=== PATIENT | female | born 1940 | race Caucasian/White ===

== ENCOUNTER → 2017-12-15 | Outpatient (CLI) | payer MEDICARE ==
[~2017-12-15] MED LIST: AMLO5TAB2 PO; ASPI-1197 PO; BUTA-256 PO; LEVO75TA6 PO; LORA0.5T2 PO; LOVA40TA2 PO; METO100T7 PO
== END | disposition home or self-care (01) ==
LOC: SHCH 09:27
PROVIDERS: ATTEND Internal Medicine Cardiovascular Disease
DX: I51.7 Cardiomegaly (principal)
CPT/HCPCS: 93306

== ENCOUNTER → 2018-02-15 | Outpatient (CLI) | payer MEDICARE | END | disposition home or self-care (01) | LOC: RAH 10:28 | PROVIDERS: ATTEND Internal Medicine | DX: Z12.31 Encounter for screening mammogram for malignant neoplasm of breast (principal) | CPT/HCPCS: 77067 ==

== ENCOUNTER → 2018-07-05 | Outpatient (CLI) | payer MEDICARE ==
[~2018-07-05] MED LIST changes: -AMLO5TAB2 PO; +AMLO5TAB7 PO
== END | disposition home or self-care (01) ==
LOC: SHCH 11:16
PROVIDERS: ATTEND Internal Medicine Cardiovascular Disease
DX: I05.0 Rheumatic mitral stenosis (principal); I10 Essential (primary) hypertension
CPT/HCPCS: 93306

== ENCOUNTER → 2019-02-02 | Outpatient (CLI) | payer MEDICARE ==
[~2019-02-02] MED LIST changes: -AMLO5TAB7 PO; +AMLO5TAB9 PO
== END | disposition home or self-care (01) ==
LOC: RAH 13:49
PROVIDERS: ATTEND Internal Medicine Cardiovascular Disease
DX: J84.10 Pulmonary fibrosis, unspecified (principal); I25.10 Atherosclerotic heart disease of native coronary artery without angina pectoris; M47.815 Spondylosis without myelopathy or radiculopathy, thoracolumbar region
CPT/HCPCS: 71250

== ENCOUNTER → 2019-02-13 | Outpatient (CLI) | payer MEDICARE | END | disposition home or self-care (01) | LOC: SHCH 15:42 | PROVIDERS: ATTEND Internal Medicine Cardiovascular Disease | DX: I08.3 Combined rheumatic disorders of mitral, aortic and tricuspid valves (principal); I11.9 Hypertensive heart disease without heart failure | CPT/HCPCS: 93306 ==

== ENCOUNTER → 2019-03-01 | Outpatient (CLI) | payer MEDICARE | END | disposition home or self-care (01) | LOC: RAH 08:22 | PROVIDERS: ATTEND Internal Medicine | DX: K76.89 Other specified diseases of liver (principal) | CPT/HCPCS: 36415; 76705; 82565; 84520 ==

== ENCOUNTER → 2019-03-07 | Outpatient (CLI) | payer MEDICARE ==
[~2019-03-07] MED LIST changes: +IOHEXOL 350 MG/ML 100ML INFUS..BTL IV ONE
== END | disposition home or self-care (01) ==
LOC: OIH 08:47
PROVIDERS: ATTEND Internal Medicine
DX: R16.0 Hepatomegaly, not elsewhere classified (principal); K76.9 Liver disease, unspecified; I70.0 Atherosclerosis of aorta
CPT/HCPCS: 74170; Q9967

== ENCOUNTER 2019-04-05 15:45 | Emergency (ER) | payer MEDICARE ==
[~2019-04-05 15:45] MED LIST changes: -IOHEXOL 350 MG/ML 100ML INFUS..BTL IV ONE
[2019-04-05 16:23] LABS: BASOPHILS % (AUTO) 0.4 % (0.0-5.0); EOSINOPHILS % (AUTO) 0.9 % (0.0-8.0); HEMATOCRIT 43.4 % (36-48); LYMPHOCYTES % (AUTO) 22.5 % (21.0-51.0); MEAN CORPUSCULAR HEMOGLOBIN 29.4 pg (27.0-33.0); MEAN CORPUSCULAR HGB CONC 33.7 g/dL (32.0-36.0); MEAN CORPUSCULAR VOLUME 87.3 fL (79-99); MONOCYTES % (AUTO) 8.5 % (3.0-13.0); NEUTROPHILS % (AUTO) 67.7 % (40.0-77.0); NUCLEATED RED BLOOD CELLS 0.1 % (0.0-0.19); PLATELET COUNT (AUTO) 244 K/uL (130-400); RED BLOOD CELL COUNT(AUTO) 4.97 MIL/uL (4.00-5.50); RED CELL DISTRIBUTION WIDTH 14.8 % (11.0-15.5)
[2019-04-05 16:38] LABS: INR 1.01 (0.85-1.15); PARTIAL THROMBOPLASTIN TIME 26.8 SEC (26.3-35.5); PROTHROMBIN TIME 10.6 SEC (9.6-11.6)
[2019-04-05 16:40] LABS: POTASSIUM 3.4 mmol/L (3.5-5.1)
[2019-04-05 16:47] LABS: ALBUMIN 4.2 g/dL (3.5-5.0); BILIRUBIN,TOTAL 2.6 mg/dL (0.2-1.0)
[2019-04-05 16:52] LABS: B-TYPE NATRIURETIC PEPTIDE 374 pg/mL (0-100)
== END 2019-04-05 19:33 | disposition home or self-care (01) ==
LOC: EDH 15:45
DX: I10 Essential (primary) hypertension (principal); I70.1 Atherosclerosis of renal artery; F41.9 Anxiety disorder, unspecified; Z87.891 Personal history of nicotine dependence; Z88.1 Allergy status to other antibiotic agents
CPT/HCPCS: 36415; 70450; 71045; 76770; 80053; 82550; 83880; 84484; 85025; 85610; 85730; 93005; 93975

== ENCOUNTER → 2019-10-12 | Outpatient (CLI) | payer MEDICARE | END | disposition home or self-care (01) | LOC: RAH 09:28 | PROVIDERS: ATTEND Internal Medicine | DX: K76.89 Other specified diseases of liver (principal); N28.1 Cyst of kidney, acquired; K76.9 Liver disease, unspecified | CPT/HCPCS: 76705 ==

== ENCOUNTER → 2019-11-13 | Outpatient (CLI) | payer MEDICARE ==
[2019-11-13 15:19] LABS: CREATININE 1.1 mg/dL (0.5-1.5)
== END | disposition home or self-care (01) ==
LOC: RAH 14:02
PROVIDERS: ATTEND Internal Medicine
DX: K76.9 Liver disease, unspecified (principal)
CPT/HCPCS: 36415; 82565; 84520

== ENCOUNTER → 2019-11-16 | Outpatient (CLI) | payer MEDICARE ==
[~2019-11-16] MED LIST changes: +GADODIAMIDE 10 MMOL/20 ML VIAL IV ONE
== END | disposition home or self-care (01) ==
LOC: RAH 07:46
PROVIDERS: ATTEND Internal Medicine
DX: K76.0 Fatty (change of) liver, not elsewhere classified (principal); N28.1 Cyst of kidney, acquired
CPT/HCPCS: 74183; A9579

== ENCOUNTER 2020-05-27 05:36 | Day surgery (SDC) | payer MEDICARE ==
[2020-05-23 09:37] LABS: BASOPHILS % (AUTO) 0.3 % (0.0-5.0); EOSINOPHILS % (AUTO) 1.6 % (0.0-8.0); HEMATOCRIT 47.8 % (36-48); MEAN CORPUSCULAR HEMOGLOBIN 28.9 pg (27.0-33.0); MEAN CORPUSCULAR HGB CONC 31.6 g/dL (32.0-36.0); MEAN CORPUSCULAR VOLUME 91.6 fL (79-99); MONOCYTES % (AUTO) 7.2 % (3.0-13.0); NEUTROPHILS % (AUTO) 68.6 % (40.0-77.0); PLATELET COUNT (AUTO) 255 K/uL (130-400); RED BLOOD CELL COUNT(AUTO) 5.22 MIL/uL (4.00-5.50); RED CELL DISTRIBUTION WIDTH 13.9 % (11.0-15.5); WHITE BLOOD COUNT (AUTO) 10.3 K/uL (4.8-10.8)
[2020-05-23 09:43] LABS: APPEARANCE,URINE Turbid (CLEAR); BILIRUBIN,URINE Negative (NEGATIVE); COLOR,URINE Yellow (YELLOW); GLUCOSE, URINE (UA) Negative (NEGATIVE); KETONES,URINE Negative (NEGATIVE); LEUKOCYTE ESTERASE ,URINE Moderate (NEGATIVE); NITRATE,URINE Negative (NEGATIVE); OCCULT BLOOD,URINE Negative (NEGATIVE); PROTEIN,URINE Trace mg/dL (NEGATIVE)
[2020-05-23 09:51] LABS: INR 0.97 (0.85-1.15); PARTIAL THROMBOPLASTIN TIME 27.5 SEC (26.3-35.5); PROTHROMBIN TIME 10.5 SEC (9.6-11.6)
[2020-05-23 09:53] LABS: AMORPHOUS SEDIMENT,UR Moderate /LPF (None Seen); BACTERIA,URINE Rare /HPF (None Seen); MUCUS,URINE Rare LPF (None Seen); RBC,URINE 0-1 /HPF (0-1); SQUAMOUS EPITHELIAL CELL,UR Rare /HPF (0-2); WBC,URINE 0-1 /HPF (0-1)
[2020-05-23 09:54] LABS: CREATININE 0.9 mg/dL (0.5-1.5)
[2020-05-23 12:51] VITALS: BP 144/73
--- NOTE | 2020-05-26 13:45 | NUR ---
RE: ABNORMAL LABS REPORTED ABNORMAL UA RESULTS AND URINE CULTURE SENSITIVITY TO STEPHANI GALLARDO. RECEIVED ORDERS TO FAX RESULTS TO PATIENT'S PRIMARY DOCTOR. WILL FAX RESULTS TO DR ROSARIO'S OFFICE.
[~2020-05-27] VITALS: Ht 157.5 cm; Wt 53.5 kg
[2020-05-27] VITALS (14 sets, daily range): BP systolic 113–200; BP diastolic 48–80
[~2020-05-27 05:36] MED LIST changes: +ALEN70TA69 PO; +AMLO-257 PO; -AMLO5TAB9 PO; -ASPI-1197 PO; -BUTA-256 PO; +CLON0.1T PO; -GADODIAMIDE 10 MMOL/20 ML VIAL IV ONE; -LORA0.5T2 PO
[2020-05-27] MEDS ORDERED: AEC81 PO (07:00)
[2020-05-27] MEDS ORDERED: LORA0.5T83 PO (07:04)
[2020-05-27] MEDS ORDERED: SODIUM CHLORIDE 0.9% 1000ML 1,000 ML IV ONE (08:08)
[2020-05-27] MEDS: ACETAMINOPHEN 325 MG TAB ONE ×2 (08:11→08:13)
--- NOTE | 2020-05-27 09:10 | NUR ---
Pt to cath lab manager, report given to MANDIE June, care rendered over.
[2020-05-27] MEDS ORDERED: SODIUM BICARB 50MEQ 50ML VIAL 50 ML ONE (09:24)
[2020-05-27] MEDS ORDERED: IODIXANOL 320 MG/ML 100 ML VIAL ONE (09:24)
[2020-05-27] MEDS ORDERED: LIDOCAINE HCL 2% 20ML ONE (09:24)
[2020-05-27] MEDS ORDERED: HEPARIN SODIUM 1000UNIT/ML 10ML VIAL ONE (09:24)
[2020-05-27] MEDS ORDERED: NITROGLYCERIN 2 MG/VIAL VIAL IV ONE (09:25)
[2020-05-27] MEDS ORDERED: MEPERIDINE-PF 25 MG/ML SYG ONE ×2 (09:32→09:39)
[2020-05-27] MEDS ORDERED: MIDAZOLAM HCL 1 MG/ML 2ML VIAL ONE ×2 (09:32→09:39)
[2020-05-27] MEDS ORDERED: NITROGLYCERIN 4.1 GM SPRAY TL ONE (09:39)
[2020-05-27] MEDS ORDERED: CLOPIDOGREL BISULFATE 300 MG TAB ONE (10:08)
[2020-05-27] MEDS ORDERED: ASPIRIN 81MG TAB.CHEW ONE (10:08)
[2020-05-27] MEDS ORDERED: SODIUM CHLORIDE 0.9% 1000ML 1,000 ML IV SCH (10:15)
--- NOTE | 2020-05-27 10:30 | NUR ---
Pt back from rags laborer, received from MANDIE Wilson at bedside. Pt reports that headache has been relieved. Right femoral site soft, non-tender, dressing dry, clean, and intact. Dietary called and Heart Healthy Diet ordered. Pt report no questions or complaints at this time.
[2020-05-27] MEDS ORDERED: CLONIDINE HCL 0.1 MG TABLET ONE (11:59)
--- NOTE | 2020-05-27 12:00 | NUR ---
yard labor supervisor called and message left for Dr. Ramires that pt's blood pressure was 184/73. Katie called back and relayed orders to give Clonidine, pt's prn home medication as ordered to continue in hospital. Medication administered, will continue to monitor BP.
--- NOTE | 2020-05-27 12:45 | NUR ---
STEPHANI Jean called and notified that blood pressure continues to rise after 45 mins from Clonidine administration. Blood pressure now, 200/80. Orders given for Hydralazine.
[2020-05-27] MEDS: HYDRALAZINE HCL 20 MG/ML VIAL ONE (12:50)
--- NOTE | 2020-05-27 14:45 | NUR ---
Pt discharged home, tolerating fluids/solids well. Denies any pain as headache resolved and she has no pain at cath site. Patient voided good amount prior to discharge. Prescription for Plavix given to pt and pt instructed on importance of taking both Plavix and baby aspirin. Pt and spouse report no further questions at this time. Pt encouraged to go home and rest for the remainder of the day.
== END 2020-05-27 14:45 | disposition home or self-care (01) ==
LOC: DAH 05:36
PROVIDERS: ATTEND Internal Medicine Cardiovascular Disease
DX: I15.0 Renovascular hypertension (principal); I70.1 Atherosclerosis of renal artery; I70.0 Atherosclerosis of aorta; I73.9 Peripheral vascular disease, unspecified; I10 Essential (primary) hypertension; E78.5 Hyperlipidemia, unspecified; E03.9 Hypothyroidism, unspecified; F41.9 Anxiety disorder, unspecified; M47.814 Spondylosis without myelopathy or radiculopathy, thoracic region; Z79.82 Long term (current) use of aspirin; Z79.890 Hormone replacement therapy; Z87.891 Personal history of nicotine dependence; Z79.01 Long term (current) use of anticoagulants; Z79.899 Other long term (current) drug therapy; Z90.710 Acquired absence of both cervix and uterus; Z98.42 Cataract extraction status, left eye; Z98.41 Cataract extraction status, right eye; Z82.49 Family history of ischemic heart disease and other diseases of the circulatory system; Z88.8 Allergy status to other drugs, medicaments and biological substances; Z95.2 Presence of prosthetic heart valve
CPT/HCPCS: 36252; 36415; 37236; 71045; 80048; 81001; 85025; 85610; 85730; 87077; 87088; 87186; 93005; A4215; A4216; A4221; A4222; A4223 ×3; A4606; A4663; C1760; C1769; C1876; C1887; C1894; J0360; J1644 ×2; J2175 ×2; J2250 ×2; J3490 ×3; J7030; Q9967; 99156; 99157

== ENCOUNTER → 2020-12-22 | Outpatient (CLI) | payer MEDICARE ==
[~2020-12-22] MED LIST changes: +AEC81 PO; -ALEN70TA69 PO; +ALEN70TA80 PO; +LORA0.5T83 PO
== END | disposition home or self-care (01) ==
LOC: SHCH 07:51
PROVIDERS: ATTEND Internal Medicine Cardiovascular Disease
DX: I08.8 Other rheumatic multiple valve diseases (principal); I10 Essential (primary) hypertension; E78.5 Hyperlipidemia, unspecified; I27.20 Pulmonary hypertension, unspecified; R55 Syncope and collapse
CPT/HCPCS: 93306; 93356

== ENCOUNTER → 2021-08-12 | Outpatient (CLI) | payer MEDICARE | END | disposition home or self-care (01) | LOC: SHCH 13:22 | PROVIDERS: ATTEND Internal Medicine Cardiovascular Disease | DX: I65.23 Occlusion and stenosis of bilateral carotid arteries (principal); R42 Dizziness and giddiness; R09.89 Other specified symptoms and signs involving the circulatory and respiratory systems | CPT/HCPCS: 93880 ==

== ENCOUNTER → 2021-08-26 | Outpatient (CLI) | payer MEDICARE | END | disposition home or self-care (01) | LOC: RAH 07:51 | PROVIDERS: ATTEND Internal Medicine | DX: K76.89 Other specified diseases of liver (principal) | CPT/HCPCS: 76705 ==

== ENCOUNTER → 2021-11-11 | Outpatient (CLI) | payer MEDICARE | END | disposition home or self-care (01) | LOC: SHCH 07:36 | PROVIDERS: ATTEND Internal Medicine Cardiovascular Disease | DX: I10 Essential (primary) hypertension (principal); Z95.828 Presence of other vascular implants and grafts | CPT/HCPCS: 93975 ==

== ENCOUNTER → 2022-07-31 | Outpatient (CLI) | payer MEDICARE | END | disposition home or self-care (01) | LOC: SHCH 12:50 | PROVIDERS: ATTEND Internal Medicine Cardiovascular Disease | DX: R42 Dizziness and giddiness (principal) | CPT/HCPCS: 93306 ==

== ENCOUNTER → 2022-09-27 | Outpatient (CLI) | payer MEDICARE | END | disposition home or self-care (01) | LOC: LAB 15:31 | PROVIDERS: ATTEND Internal Medicine Cardiovascular Disease | DX: E03.9 Hypothyroidism, unspecified (principal); I47.20 Ventricular tachycardia, unspecified; I10 Essential (primary) hypertension; Z79.899 Other long term (current) drug therapy | CPT/HCPCS: 36415; 84443 ==

== ENCOUNTER → 2022-11-10 | Outpatient (CLI) | payer MEDICARE | END | disposition home or self-care (01) | LOC: SHCH 09:04 | PROVIDERS: ATTEND Internal Medicine Cardiovascular Disease | DX: I65.23 Occlusion and stenosis of bilateral carotid arteries (principal); I95.1 Orthostatic hypotension; I10 Essential (primary) hypertension | CPT/HCPCS: 93880; 93975 ==

== ENCOUNTER → 2023-03-02 | Outpatient (CLI) | payer MEDICARE ==
[~2023-03-02] MED LIST changes: -ALEN70TA80 PO; -AMLO-257 PO; +CALC-909 PO; +ERGO500093 PO; +IOHEXOL 350 MG/ML 100ML INFUS..BTL IV ONE; +MELA5TAB14 PO; -METO100T7 PO; +MULT-1367 PO; +TERI2.4P SQ; +VALS160T29 PO
== END | disposition home or self-care (01) ==
LOC: RAH 07:28
PROVIDERS: ATTEND Internal Medicine
DX: K76.89 Other specified diseases of liver (principal); K76.9 Liver disease, unspecified; R63.4 Abnormal weight loss; I70.0 Atherosclerosis of aorta
CPT/HCPCS: 74178; Q9967